=== PATIENT | female | born 1980 | race Caucasian/White ===

== ENCOUNTER → 2020-12-10 | Outpatient (CLI) | payer OTHER ==
[~2020-12-10] MED LIST: ADVIL100 M3 PO; ANTACID400 MG PO; BENTYL20 MG PO; ZOFRAN 4 MG ORAL4 MG PO
--- NOTE | 2020-12-21 15:22 | PF ---
[address] [address] PULMONARY FUNCTION REPORT Name: ONI SCHROEDER Room: [facility].#: [id number] Admission: 12/10/20 Attend Phys: Dennis Sorenson MD Discharge: Date of : 82 Report #: [id number] THIS REPORT FOR: cc: Lori Zepeda NP, Elizabeth NP Pervez, Adeel MD ~ DOC #: [id number] Dennis Sorenson MD DATE OF VISIT: 12/10/2020 PULMONARY FUNCTION TEST The FEV1/FVC ratio is normal at 79% with FVC normal at 109% and FEV1 normal at 105%. FEF 25-75 is also normal at 98%. After the administration of a bronchodilator, there is no significant change in any of these values. The patient's post-bronchodilator FEV1 is 3.45 L. LUNG VOLUMES: The total lung capacity is increased to 148%. The residual volume is increased to 137%. DIFFUSION CAPACITY: The DLCO as adjusted for hemoglobin is normal at 82%. IMPRESSION: The spirometry and DLCO are normal. The lung volumes do however indicate hyperinflation. This could indicate underlying obstructive lung disease. Clinical correlation is advised. Dennis Sorenson MD AP/GAU <ELECTRONICALLY SIGNED> By: Dennis Sorenson MD 12/21/20 1522 [id number] ja Alejo
== END ==
LOC: M.PUL 12-04 13:23
PROVIDERS: ATTEND Internal Medicine Critical Care Medicine
DX: R06.02 Shortness of breath (principal); Z88.8 Allergy status to other drugs, medicaments and biological substances